=== PATIENT | female | born 1955 | race Two or more races ===

== ENCOUNTER 2020-08-15 09:09 | Outpatient (CLI) | payer OTHER | END 2020-08-15 15:57 | disposition home or self-care (01) | LOC: OFIC 805 09:09 | PROVIDERS: ATTEND Otolaryngology | DX: H60.8X2 Other otitis externa, left ear (principal); H61.22 Impacted cerumen, left ear ==

== ENCOUNTER 2020-08-21 11:58 | Outpatient (CLI) | payer OTHER | END 2020-08-21 16:16 | disposition home or self-care (01) | LOC: OFIC 805 11:58 | PROVIDERS: ATTEND Otolaryngology | DX: H60.8X2 Other otitis externa, left ear (principal) ==

== ENCOUNTER 2020-08-28 14:36 | Outpatient (CLI) | payer OTHER | END 2020-08-28 15:37 | disposition home or self-care (01) | LOC: OFIC 805 14:36 | PROVIDERS: ATTEND Otolaryngology Otology & Neurotology | DX: H60.8X2 Other otitis externa, left ear (principal); H61.22 Impacted cerumen, left ear; H72.92 Unspecified perforation of tympanic membrane, left ear ==